=== PATIENT | female | born 1990 | race Caucasian/White ===

== ENCOUNTER 2017-12-28 13:33 | Inpatient (IN) ==
[2017-12-28] MEDS ORDERED: RINGER'S SOLUTION,LACTATED 1,000 ML IV ONE (13:38)
[2017-12-28] MEDS ORDERED: OXYTOCIN/DEXTROSE 5%-WATER 30 UNITS/500 ML BAG IV ONE ×2 (13:38→18:49)
[2017-12-28] MEDS ORDERED: DEXTROSE 5%-LACTATED RINGERS 1,000 ML IV PRN (13:38)
[2017-12-28] MEDS ORDERED: ONDANSETRON HCL/PF 2 MG/ML VIAL IV PRN (13:38)
[2017-12-28 16:51] LABS: Cocaine Ur Negative (NEGATIVE); Urine Barbiturate Negative (NEGATIVE); Urine Benzodiazepines Negative (NEGATIVE); Urine Opiates Negative (NEGATIVE); Urine PCP Negative (NEGATIVE); Urine THC Negative (NEGATIVE)
--- NOTE | 2017-12-28 17:53 | HP ---
Chief Complaint - Chief Complaint Date of Service: 12/28/17 Time of Service: 17:41 Chief Complaint: contractions History of Present Illness: 27 yo at 36 4/7 wks presents to office complaining of contractions of increasing frequency and intensity. During her office visit this am she was 4-5 cm/80/-2, she returned to the office a couple hours later complaining of increased pressure and contractions. She was 5-6/80/-2. This complicated by anemia, hyperthyroid with tachycardia partially controlled with beta cara, history of 4536g with shoulder dystocia, h/o PP hemorrhage, h/o GHTN. Rh positive Rubella immune GBS negative Medical History (Last Updated 12/21/17 @ 09:31 by Eliana Morales RN) Refused influenza vaccine (Acute) Onset Date: 12/21/17 History of hemorrhage (Acute) Hyperthyroidism (Acute) History of shoulder dystocia in prior (Acute) History of gestational hypertension (Acute) Body piercing Wears glasses or contacts Anemia Gestational hypertension Hyperthyroidism Oligohydramnios Ovarian cyst hemorrhage Tachycardia Uterine atony Abdominal pain, LLQ Shoulder dystocia Surgical History: Surgical History (Last Reviewed 11/23/17 @ 09:09 by Susan Marques) History of oral surgery Family History: Family History (Last Reviewed 11/23/17 @ 09:09 by Susan Marques) Father Myocardial infarction Diabetes Grandfather Colon cancer Grandfather Diabetes Heart disease Grandmother Diabetes Hypertension Grandmother Cancer of lung Grandmother Breast cancer Mother Asthma Diabetes CVA (cerebral vascular accident) Hypertension Social History: Preferred Language Hungarian Abuse History No History of abuse Review Of Systems (GEN) - Review of Systems EENTM: Present: No Symptoms Reported Respiratory: Present: No Symptoms Reported Cardiac: Present: Other - tachycardia Abdominal: Present: No Symptoms Reported Genitourinary: Present: Other - contractions, vaginal pressure Musculoskeletal: Present: Back Pain Neurological: Present: No Symptoms Reported Skin: Present: No Symptoms Reported Endocrine: Present: No Symptoms Reported Immunizations: IMMUNIZATION HX Immunizations Up to Date Yes History of Influenza Vaccine No Hx Pneumococcal Vaccination No Allergies/Adverse Reactions: Allergies Allergy/AdvReac Type Severity Reaction Status Date / Time No Known Allergies Allergy Verified 12/21/17 09:14 Home Medications: HOME MEDICATIONS Vits96/Iron Fum/Folic [ S] 1 tab PO DAILY #90 tab 12/12/15 [Last Taken 12/11/17] metoprolol tartrate 25 mg tablet 25 mg PO BID 09/16/17 [Last Taken 12/12/17] breast pump See Dose Instructions .ROUTE .MEDSUPPLY #1 ea 11/04/17 [Last Taken Unknown] Exam - Exam Vital Signs: Vital Signs - Last Taken Temp 36.8 C 12/28/17 13:52 Pulse 123 H 12/28/17 13:52 Resp 18 12/28/17 13:52 BP 130/93 H 12/28/17 13:52 Pulse Ox 99 12/28/17 13:52 Constitutional: Present: Alert, Oriented x3, Cooperative ENT Exam: Present: hearing grossly normal Neck: Absent: thyromegaly Breasts: Present: Exam deferred Respiratory: Present: lungs clear, no respiratory distress Cardiovascular/Chest: Present: normal peripheral pulses, no edema, no murmur, tachycardia Abdomen: Present: soft, nondistended, no rebound tenderness, other - gravid /Rectal: Present: Other - 5-6/80/-2, contractions q 3-4 min Extremity: Present: non-tender, no pedal edema, no calf tenderness Skin Exam: Present: normal color, warm/dry, no cyanosis Lymphatic: Present: no adenopathy Neurologic: Present: alert, normal mood/affect, oriented x 3 Appearance: Present: appropriate appearance, appropriate insight Eye contact: Present: cooperative, good eye contact, normal speech Thoughts: Present: normal thought pattern Diagnostic Studies: Laboratory Results Urine Opiates Screen Negative (NEGATIVE) 12/28/17 16:13 Barbiturate Screen Negative (NEGATIVE) 12/28/17 16:13 Ur Phencyclidine Scrn Negative (NEGATIVE) 12/28/17 16:13 Urine Amphetamine Negative (NEGATIVE) 12/28/17 16:13 U Benzodiazepines Scrn Negative (NEGATIVE) 12/28/17 16:13 Urine Cocaine Screen Negative (NEGATIVE) 12/28/17 16:13 Urine Marijuana (THC) Negative (NEGATIVE) 12/28/17 16:13 Assessment/Plan - Assessment/Plan (1) Tachycardia Problem: Chronic (2) labor in third trimester Assessment: Admit for routine management of labor. Epidural PRN. Problem: Acute Qualifiers: labor delivery status: with delivery in third trimester Fetus number: single or unspecified fetus Qualified Code(s): O60.14X0 - labor third trimester with delivery third trimester, not applicable or unspecified (3) Hyperthyroidism Problem: Chronic (4) History of shoulder dystocia in prior Problem: Chronic (5) History of gestational hypertension Problem: Chronic
--- NOTE | 2017-12-28 17:57 | PN ---
Progess Note - Interim Date: 12/28/17 Time: 17:55 Narrative: 12/28/17 17:55 Patient rating her contractions 7 out of 10 Vital signs stable. FHT: 150 baseline, reassuring contractions q 3-4 min Cervix: 7/80/-2, AROM-clear @ 1710 Impression: Intrauterine at 36-4/7 weeks labor Plan: Expect normal spontaneous vaginal delivery soon
[2017-12-28] MEDS ORDERED: oxyCODONE HCL/ACETAMINOPHEN 1 TAB TABLET PO PRN (18:49)
[2017-12-28] MEDS ORDERED: BISACODYL 10 MG SUPP.RECT RC PRN (18:49)
[2017-12-28] MEDS ORDERED: HYDROCORTISONE 30 APPL TUBE TP PRN (18:49)
[2017-12-28] MEDS ORDERED: SENNOSIDES 8.6 MG TABLET PO PRN (18:49)
[2017-12-28] MEDS ORDERED: BENZOCAINE/MENTHOL 81 SPRAY CAN TP PRN (18:49)
[2017-12-28] MEDS ORDERED: GLYCERIN/WITCH HAZEL LEAF 40 APPL BOX TP PRN (18:49)
[2017-12-28] MEDS ORDERED: ACETAMINOPHEN 325 MG TABLET PO PRN (18:49)
--- NOTE | 2017-12-28 18:52 | OR ---
Operative Report - Dictated Report Narrative: Spontaneous vaginal delivery of viable female at 1823 on 12/28/2017 with Apgars 9 and 9, weighing 3417 g in DESIRAE position. Cord clamping delayed approximately 1 minute Placenta delivered complete, intact, with three vessel cord Estimated blood loss: less than 50 ml Anesthesia: None Lacerations: None History for Definition: * The number of deliveries resulting in a live the patient experienced prior to current hospitalization * The previous delivery of live twins or any live multiple gestation is considered one live event. *If primagravida or nulliparous is documented select zero for the number of pre vious live births. Live Events: 3
[2017-12-28] MEDS: IBUPROFEN 800 MG TABLET PO PRN (20:53)
[2017-12-28] MEDS: METOPROLOL TARTRATE 25 MG TABLET PO SCH (20:54)
[2017-12-28] MEDS: DOCUSATE SODIUM 100 MG CAPSULE PO SCH (20:54)
[2017-12-28] MEDS ORDERED: METOPROLOL TARTRATE 25 MG TABLET PO SCH (21:00)
[2017-12-29] MEDS: IBUPROFEN 800 MG TABLET PO PRN ×3 (02:53→21:02)
[2017-12-29] MEDS: DOCUSATE SODIUM 100 MG CAPSULE PO SCH ×2 (08:43→21:01)
[2017-12-29] MEDS: METOPROLOL TARTRATE 25 MG TABLET PO SCH ×2 (08:43→21:01)
--- NOTE | 2017-12-29 10:27 | PN ---
Subjective - Date and Time Seen Date: 12/29/17 Time: 10:27 Objective - Vitals Vitals: Last Vital Signs Temp 36.3 C 12/29/17 07:26 Pulse 86 12/29/17 08:43 Resp 18 12/29/17 07:26 BP 136/69 12/29/17 08:43 Pulse Ox 98 12/29/17 07:26 Patient denies complaints. Breast-feeding Lochia wnl Abdomen - soft, nontender Uterus - firm, at umbilicus - 1 No calf tenderness Impression: day #1 - s/p spontaneous vaginal delivery. Plan: Continue routine care Assessment/Plan - Problems/Diagnosis (1) Tachycardia Problem: Chronic (2) labor in third trimester Problem: Acute Qualifiers: labor delivery status: with delivery in third trimester Fetus number: single or unspecified fetus Qualified Code(s): O60.14X0 - labor third trimester with delivery third trimester, not applicable or unspecified (3) Hyperthyroidism Problem: Chronic (4) History of shoulder dystocia in prior Problem: Chronic (5) History of gestational hypertension Problem: Chronic
[2017-12-29] MEDS ORDERED: MAGNESIUM HYDROXIDE 30 ML UDC PO PRN (13:11)
--- NOTE | 2017-12-30 05:40 | PN ---
Subjective - Date and Time Seen Date: 12/30/17 Time: 05:40 Objective - Vitals Vitals: Last Vital Signs Temp 37.2 C 12/29/17 20:12 Pulse 59 L 12/30/17 02:36 Resp 16 12/30/17 02:36 BP 128/80 12/30/17 02:36 Pulse Ox 99 12/30/17 02:36 Patient denies complaints. Lochia wnl Abdomen - soft, nontender Uterus - firm, at umbilicus - 2 No calf tenderness Impression: day #2 - s/p spontaneous vaginal delivery. Plan: Routine discharge instructions Assessment/Plan - Problems/Diagnosis (1) Tachycardia Problem: Chronic (2) labor in third trimester Problem: Acute Qualifiers: labor delivery status: with delivery in third trimester Fetus number: single or unspecified fetus Qualified Code(s): O60.14X0 - labor third trimester with delivery third trimester, not applicable or unspecified (3) Hyperthyroidism Problem: Chronic (4) History of shoulder dystocia in prior Problem: Chronic (5) History of gestational hypertension Problem: Chronic
[2017-12-30] MEDS: METOPROLOL TARTRATE 25 MG TABLET PO SCH (10:26)
[2017-12-30] MEDS: DOCUSATE SODIUM 100 MG CAPSULE PO SCH (10:28)
[2017-12-30] MEDS: IBUPROFEN 800 MG TABLET PO PRN (10:29)
[2017-12-30 10:31] VITALS: BP 126/78
== END 2017-12-30 12:30 | disposition home or self-care (01) | DRG 807 ==
LOC: OB 13:33
PROVIDERS: ADMIT Obstetrics & Gynecology; ATTEND Obstetrics & Gynecology
CPT/HCPCS: 59025; 80307; 88307; G0479